=== PATIENT | male | born 2000 | race Caucasian/White ===

== ENCOUNTER 2025-11-06 16:42 | Emergency (ER) | payer OTHER, SELFPAY ==
[2025-11-06 16:58] VITALS: BP 131/92; PULSE 65; RESP 16; TEMP 36.9; O2SAT 96; BMI 38.0
--- NOTE | 2025-11-06 17:20 | DI.CT.S_ITS ---
PROCEDURE: CT MASTOID TEMPORAL INDICATIONS: Mastoid tenderness COMPARISON: None. TECHNIQUE: Noncontrast 0.6 mm thick axial sections acquired through each temporal bone separately. Coronal images are reformatted. FINDINGS: Image quality: Excellent. RIGHT: External auditory canal: Canal has a normal appearance. Middle ear: The middle ear structures, including the ossicles and tympanic membrane, appear normal. No abnormal fluid or soft tissue density. Inner ear: Inner ear is normally formed and appears unremarkable. Facial nerve appears normal throughout is course. Mastoids: Mastoid air cells are clear. LEFT: External auditory canal: Mild soft tissue thickening. Cerumen within the canal. Middle ear: Partial opacification of the middle ear with mucosal thickening and/or fluid. Ossicles appear normal. No bone erosion. Inner ear: Inner ear is normally formed and appears unremarkable. Facial nerve appears normal throughout its course. Mastoids: Trace effusion. MISCELLANEOUS: Visualized surrounding bones appear unremarkable. Visualized intracranial structures, including the cerebellopontine angle cisterns, appear normal. IMPRESSION: Inflammation on the left involving the middle ear, mastoid and external auditory canal. Favor otitis media. Dictated by: Omero Key M.D. on 11/06/2025 at 17:38 Approved by: Omero Key M.D. on 11/06/2025 at 17:44
--- NOTE | 2025-11-06 17:40 | ED.EAR ---
HPI - Ear Problem <Kanchan Rodríguez PA-C - Last Filed: 11/06/25 18:16> General Chief complaint: Ear Stated complaint: Lt ear px Time Seen by Provider: 11/06/25 17:08 Mode of arrival: Ambulatory History of Present Illness HPI Narrative: 25-year-old male presents to the ED with 1 day of left ear pain, left jaw pain. Patient states that his left ear feels full, hearing feels a bit muffled. Patient complains of left-sided jaw pain, which is worse when he clenches his jaw tightly. He also feels pain in the bottom left molar. No recent colds or ear infections. No fever, chills, chest pain, shortness of breath. Related Data Previous Rx's ?Medication ?Instructions ?Recorded clindamycin HCl 150 mg capsule 450 mg (3 x 150 mg) PO TID 10 days 11/06/25 #90 caps prednisone 20 mg tablet 60 mg (3 x 20 mg) PO DAILY 5 days 11/06/25 #15 tabs Allergies Allergy/AdvReac Type Severity Reaction Status Date / Time No Known Drug Allergies Allergy Verified 11/06/25 17:00 Review of Systems <Kanchan Rodríguez PA-C - Last Filed: 11/06/25 18:16> Constitutional Constitutional: Denies chills, Denies fatigue, Denies fever(s), Denies frequent falls, Denies lethargy and Denies weakness Eyes Eyes: Denies change in vision, Denies eye discharge, Denies irritation and Denies loss of vision ENT Ears, Nose, Mouth, and Throat: Denies change in voice, Denies dizziness, Reports otalgia, Denies neck pain, Denies sore throat and Denies throat swelling Comments: L ear pain, jaw pain Cardiovascular Cardiovascular: Denies chest pain, Denies irregular heart rhythm, Denies lightheadedness, Denies palpitations, Denies dyspnea, Denies dyspnea on exertion and Denies orthopnea Respiratory Respiratory: Denies cough, Denies dyspnea, Denies dyspnea on exertion and Denies wheezing Gastrointestinal Gastrointestinal: Denies abdominal pain, Denies change in bowel habits, Denies diarrhea, Denies nausea and Denies vomiting Musculoskeletal Musculoskeletal: Denies neck pain and Denies numbness Integumentary/Breasts Skin/Breast: Denies pruritus, Denies erythema, Denies rash and Denies wounds Neurologic Neurologic: Denies behavioral changes, Denies confusion, Denies dizziness, Denies frequent falls, Denies loss of vision, Denies numbness and Denies weakness Psychiatric Psychiatric: Denies anxiety, Denies behavioral changes, Denies confusion, Denies depression, Denies homicidal ideation and Denies suicidal ideation Endocrine Endocrine: Denies fatigue, Denies flushing and Denies palpitations Hematologic/Lymphatic Hematologic/Lymphatic: Denies easy bruising Allergic/Immunologic Allergic/Immunologic: Denies urticaria, Denies throat swelling and Denies wheezing Patient History <Kanchan Rodríguez PA-C - Last Filed: 11/06/25 18:16> Social History Smoking Status: Never smoker Smoking Status: Never smoker Exam <Kanchan Rodríguez PA-C - Last Filed: 11/06/25 18:16> Narrative Exam Narrative: Const General:?cooperative, healthy appearing and comfortable [facility] Head:?normal to inspection Ears:?hearing grossly normal bilaterally; left tympanum not visualized due to cerumen impaction; left pinna above the earlobe is erythematous, swollen; left mastoid area appears erythematous and tender to touch Nose:?external nose normal Face and sinus:?normal facial exam and sinuses nontender Mouth:?oral mucosae normal Throat:?posterior oropharynx normal Eyes General:?appearance normal, both eyes and all related structures Neck Neck:?normal visual inspection and no lymphadenopathy noted Resp Effort & Inspection:?normal respiratory effort Auscultation:?clear to auscultation bilaterally Cardio Rate:?regular rate Rhythm:?regular rhythm Neuro General:?patient alert, patient awake and patient oriented x3 Initial Vital Signs Initial Vital Signs: Vital Signs Temperature 98.4 F 11/06/25 16:58 Pulse Rate 65 11/06/25 16:58 Respiratory Rate 16 11/06/25 16:58 Blood Pressure 131/92 H 11/06/25 16:58 Pulse Oximetry 96 11/06/25 16:58 Oxygen Delivery Method Room Air 11/06/25 16:58 <Jose Miguel Yo MD - Last Filed: 11/06/25 23:06> Initial Vital Signs Initial Vital Signs: Vital Signs Temperature 98.4 F 11/06/25 16:58 Pulse Rate 65 11/06/25 16:58 Respiratory Rate 16 11/06/25 16:58 Blood Pressure 131/92 H 11/06/25 16:58 Pulse Oximetry 96 11/06/25 16:58 Oxygen Delivery Method Room Air 11/06/25 16:58 Course <Kanchan Rodríguez PA-C - Last Filed: 11/06/25 18:16> Orders Ordered: ED Orders 11/06/25 17:20 CT mastoid temporal Stat 11/06/25 17:38 CBC Auto Diff [Complete Blood Count AUTO DIFF] Stat CMP [Comprehensive Metabolic Panel] Stat PT [Prothrombin Time INR] Stat PTT [PTT Partial Thromboplastin Kieran] Stat Vital Signs Vital signs: Vital Signs - 8 hr 11/06/25 16:58 11/06/25 18:07 Temperature 98.4 F Pulse Rate 65 58 L Respiratory Rate 16 16 Blood Pressure 131/92 H 141/87 H Pulse Oximetry 96 99 Oxygen Delivery Method Room Air Room Air <Jose Miguel Yo MD - Last Filed: 11/06/25 23:06> Orders Ordered: ED Orders 11/06/25 17:20 CT mastoid temporal Stat 11/06/25 17:38 CBC Auto Diff [Complete Blood Count AUTO DIFF] Stat CMP [Comprehensive Metabolic Panel] Stat PT [Prothrombin Time INR] Stat PTT [PTT Partial Thromboplastin Kieran] Stat Vital Signs Vital signs: Vital Signs - 8 hr 11/06/25 16:58 11/06/25 18:07 Temperature 98.4 F Pulse Rate 65 58 L Respiratory Rate 16 16 Blood Pressure 131/92 H 141/87 H Pulse Oximetry 96 99 Oxygen Delivery Method Room Air Room Air Medical Decision Making <Kanchan Rodríguez PA-C - Last Filed: 11/06/25 18:16> Lab Data 11/06/25 17:38 11/06/25 17:38 Labs: Lab Results 11/06/25 Range/Units 17:38 WBC 8.8 (4.5-11.0) X10^3/uL RBC 5.14 (4.5-5.9) X10^6/uL Hgb 15.1 (13.5-17.5) g/dL Hct 43.6 (41-53) % MCV 84.8 (80-100) fL MCH 29.4 (26-34) PG MCHC 34.7 (30-36) % RDW 13.6 (11.6-14.8) % Plt Count 282 (150-400) X10^3/uL Neut % (Auto) 62.5 (50-75) % Lymph % (Auto) 25.2 (25-40) % [place] % (Auto) 9.2 (3-14) % Eos % (Auto) 1.9 L (2-4) % Baso % (Auto) 1.2 (0-2) % Neut # (Auto) 5500 (3603-3868) /uL Lymph # (Auto) 2200 (6720-1130) /uL [place] # (Auto) 800 (0-900) /uL Eos # (Auto) 200 (0-450) /uL Baso # (Auto) 100 (0-100) /uL PT 12.7 H (9.4-12.5) SECONDS INR 1.1 (0.9-1.3) APTT 30 (25.1-36.5) SECONDS Sodium 139 (137-145) mmol/L Potassium 4.1 (3.4-5.1) mmol/L Chloride 106 (98-107) mmol/L Carbon Dioxide 21 L (22-32) mmol/L BUN 12 (9-20) mg/dL Creatinine 0.88 (0.66-1.25) mg/dL Estimated GFR > 60 (>60) mL/min BUN/Creatinine Ratio 13.6 (6-22) Glucose 100 H (70-99) mg/dL Calcium 9.7 (8.4-10.2) mg/dL Total Bilirubin 2.1 H (0.2-1.3) mg/dL AST 93 H (17-59) IU/L ALT 130 H (<50) IU/L Alkaline Phosphatase 74 (38-126) U/L Total Protein 8.1 (6.3-8.2) g/dL Albumin 4.8 (3.5-5.0) g/dL Globulin 3.3 (1.7-4.1) g/dL Albumin/Globulin Ratio 1.5 (1.0-2.8) MDM Narrative Medical decision making narrative: 25-year-old male presents to the ED with 1 day of left ear pain, left jaw pain. On exam, there is significant left mastoid tenderness, erythema. The left pinna above the earlobe is also erythematous and swollen. Will obtain CT mastoid. Will reassess. Labs within normal limits. CT mastoid shows inflammation on the left involving the middle ear, mastoid and external auditory canal. Favor otitis media. Partial opacification of the middle ear with mucosal thickening and/or or fluid. Ossicles appear normal. No bone erosion. Mastoids with trace effusion. ENT Dr. Shelby was consulted. He agrees venous that patient can be treated outpatient for otitis media. Unlikely mastoiditis. He also recommend steroids. Discussed findings and plan with patient. Recommend follow-up with PCP and ENT. ED return precautions discussed with patient. Patient verbalized understanding. Medical records reviewed: Yes <Jose Miguel Yo MD - Last Filed: 11/06/25 23:06> Lab Data Labs: Lab Results 11/06/25 Range/Units 17:38 WBC 8.8 (4.5-11.0) X10^3/uL RBC 5.14 (4.5-5.9) X10^6/uL Hgb 15.1 (13.5-17.5) g/dL Hct 43.6 (41-53) % MCV 84.8 (80-100) fL MCH 29.4 (26-34) PG MCHC 34.7 (30-36) % RDW 13.6 (11.6-14.8) % Plt Count 282 (150-400) X10^3/uL Neut % (Auto) 62.5 (50-75) % Lymph % (Auto) 25.2 (25-40) % [place] % (Auto) 9.2 (3-14) % Eos % (Auto) 1.9 L (2-4) % Baso % (Auto) 1.2 (0-2) % Neut # (Auto) 5500 (1489-9805) /uL Lymph # (Auto) 2200 (6252-7496) /uL [place] # (Auto) 800 (0-900) /uL Eos # (Auto) 200 (0-450) /uL Baso # (Auto) 100 (0-100) /uL PT 12.7 H (9.4-12.5) SECONDS INR 1.1 (0.9-1.3) APTT 30 (25.1-36.5) SECONDS Sodium 139 (137-145) mmol/L Potassium 4.1 (3.4-5.1) mmol/L Chloride 106 (98-107) mmol/L Carbon Dioxide 21 L (22-32) mmol/L BUN 12 (9-20) mg/dL Creatinine 0.88 (0.66-1.25) mg/dL Estimated GFR > 60 (>60) mL/min BUN/Creatinine Ratio 13.6 (6-22) Glucose 100 H (70-99) mg/dL Calcium 9.7 (8.4-10.2) mg/dL Total Bilirubin 2.1 H (0.2-1.3) mg/dL AST 93 H (17-59) IU/L ALT 130 H (<50) IU/L Alkaline Phosphatase 74 (38-126) U/L Total Protein 8.1 (6.3-8.2) g/dL Albumin 4.8 (3.5-5.0) g/dL Globulin 3.3 (1.7-4.1) g/dL Albumin/Globulin Ratio 1.5 (1.0-2.8) MDM Narrative Medical decision making narrative: 25-year-old male presents to the ED with 1 day of left ear pain, left jaw pain. On exam, there is significant left mastoid tenderness, erythema. The left pinna above the earlobe is also erythematous and swollen. Will obtain CT mastoid. Will reassess. Labs within normal limits. CT mastoid shows inflammation on the left involving the middle ear, mastoid and external auditory canal. Favor otitis media. Partial opacification of the middle ear with mucosal thickening and/or or fluid. Ossicles appear normal. No bone erosion. Mastoids with trace effusion. ENT Dr. Shelby was consulted. He agrees venous that patient can be treated outpatient for otitis media. Unlikely mastoiditis. He also recommend steroids. Discussed findings and plan with patient. Recommend follow-up with PCP and ENT. ED return precautions discussed with patient. Patient verbalized understanding. Medical records reviewed: Yes I was present and available for consultation during this patient's visit but was not involved in the care. Discharge Plan Departure Patient Disposition: Home Clinical Impression: Otitis media Qualifiers: Otitis media type: unspecified Chronicity: acute Qualified Code(s): H66.90 - Otitis media, unspecified, unspecified ear Instructions: Middle Ear Infection Activity Restrictions/Additional Instructions: You were evaluated in the emergency room today for left ear pain. Your CT scan showed a middle ear infection, for which you are being prescribed steroids and an antibiotic. Please take them as prescribed. Please follow-up with your PCP and ENT as soon as possible. Return to the emergency room if you have worsening symptoms. Prescriptions: New clindamycin HCl 150 mg capsule 450 mg PO TID 10 Days Qty: 90 0RF prednisone 20 mg tablet 60 mg PO DAILY 5 Days Qty: 15 0RF Referrals: Viet Melara MD [Primary Care Provider, Medical] Stand Alone Forms: Patient Portal/API
[2025-11-06 17:45] LABS: Add Manual Diff / Slide Review NO; Hematocrit 43.6 % (41-53); Hemoglobin 15.1 g/dL (13.5-17.5); Lymphocytes Absolute Auto 2200 /uL (1100-4500); Mean Corpuscular HGB Conc 34.7 % (30-36); Mean Corpuscular Hemoglobin 29.4 PG (26-34); Mean Corpuscular Volume 84.8 fL (80-100); Platelet Count 282 X10^3/uL (150-400)
[2025-11-06 17:54] LABS: INR 1.1 (0.9-1.3); Prothrombin Time 12.7 SECONDS (9.4-12.5)
[2025-11-06 17:56] LABS: PTT Partial Thromboplastin Tim 30 SECONDS (25.1-36.5)
[2025-11-06 17:57] LABS: Alanine Aminotransferase 130 IU/L (<50); Albumin 4.8 g/dL (3.5-5.0); Albumin Globulin Ratio 1.5 (1.0-2.8); Alkaline Phosphatase 74 U/L (38-126); Blood Urea Nitrogen 12 mg/dL (9-20); Calcium 9.7 mg/dL (8.4-10.2); Carbon Dioxide 21 mmol/L (22-32); Chloride 106 mmol/L (98-107); Estimated Glomerular Filt Rate > 60 mL/min (>60); Globulin 3.3 g/dL (1.7-4.1); Glucose 100 mg/dL (70-99); HEMOLYSIS < 15 (0-50); Potassium 4.1 mmol/L (3.4-5.1); Sodium 139 mmol/L (137-145); Total Protein 8.1 g/dL (6.3-8.2)
[2025-11-06 18:07] VITALS: BP 141/87; PULSE 58; RESP 16; O2SAT 99
== END 2025-11-06 18:13 | disposition home or self-care (01) ==
PROVIDERS: Emergency Provider Student in an Organized Health Care Education/Training Program; PCP Student in an Organized Health Care Education/Training Program
DX: H66.92 Otitis media, unspecified, left ear (principal); R68.84 Jaw pain
CPT/HCPCS: 36415; 70480; 80053; 85025; 85610; 85730; 99283; 99284